=== PATIENT | male | born 1965 | race Caucasian/White ===

== ENCOUNTER 2016-12-31 04:08 | Day surgery (SDC) | payer MEDICARE, SELFPAY ==
[2016-12-24 18:12] LABS: HEMOGLOBIN 15.8 g/dL (13.6-17.8)
--- NOTE | ~2016-12-31 | OP ---
Record Of Operation [facility] [address] [place]. [address] NAME: JEANETTE VEGA : 67 [place]US : [place] [facility] [place] [id number] AGE: 51 ADM/REG DATE : 12/31/16 MR#: [id number] REPORT SERV DATE: 12/31/16 DICTATED BY: MAE GARCIA DATE: 12/31/16 REPORT STATUS : Draft TRANSCRIBED BY: MODL DATE: 12/31/16 DATE OF PROCEDURE: 12/31/2016 PREOPERATIVE DIAGNOSIS: Right rotator cuff tear, biceps tendinitis, and impingement. POSTOPERATIVE DIAGNOSIS: Cuff hyperemia, but no full thickness tear, severe maceration, and tearing of the superior labrum with biceps tenosynovitis, and type 2 acromion, negative bursal cuff tear. PROCEDURE: Right extensive debridement biceps tenodesis, subacromial decompression. SURGEON: Mae Garcia M.D. COMPLICATIONS: None. ANESTHESIA: General endotracheal with regional block. INDICATIONS: This is a 51-year-old male, who had failed nonoperative management of the above mentioned condition, it was a difficult intubation and was done at the [facility] for that reason, he also has a spinal stimulator which precluded an MRI. He had a small full- thickness tear by CT scan and consistent physical findings with biceps tendinitis. He presented for surgical treatment after discussion of the risks, benefits, and alternatives of the procedure. DESCRIPTION OF PROCEDURE: The patient was induced in the supine position. He was carefully taken to the beach-chair position with care maintain the cervical lordosis. A time-out protocol was enforced. Ancef was administered. Posterolateral portals were created for diagnostic arthroscopy, which revealed severe maceration and tearing of the superior labrum with a type 2 and partially type 3 with some striational tearing of part of the labrum. There was severe hour-glassing and severe lipstick type extra-articular biceps tenosynovitis with some early capsulitis of the rotator interval. The cuff was hyperemic and somewhat patulous, but really did not have the tear on the articular side or bursal side. There was copious bursitis and some early thickening of coracoid humeral ligament. There was a type 3 acromion. Extensive debridement: A 5.5 cannula was localized with an outside-in spinal technique. Because of the metaplasia and the hyperemia, and contractile nature of the rotator interval, we used the ablator to release the rotator interval and the upper portion of the middle glenohumeral ligament. We ablated multiple areas of granulation tissue both anteriorly and superiorly. The biceps was transected and allowed to retract. We debrided the superior labrum as well. We assessed this for repair, however, given his age and the amount of capsulitis, I felt that he would be at risk for getting stiff for having persistent or recurrent pain with the repair, so, we decided to treat this labrum with debridement. We debrided the undersurface of the cuff and cleared out multiple areas of synovitis in the articular margin. Record Of Operation [facility] [address] [facility] [place]. [address] NAME: JEANETTE VEGA : 67 [place]US : [place] [facility] [place] PAT#: [id number] AGE: 51 ADM/REG DATE : 12/31/16 MR#: [id number] REPORT SERV DATE: 12/31/16 DICTATED BY: MAE GARCIA DATE: 12/31/16 REPORT STATUS : Draft TRANSCRIBED BY: FARZANA DATE: 12/31/16 Subacromial decompression: The arthroscopic cannula was then removed from the posterior shoulder and redirected in the subacromial space. The metal trocar was inserted and the cannula was advanced out the anterior superior portal creating an outflow portal with outside in technique. A lateral portal was then created after spinal needle localization and a skin incision was made with an 11-blade. A large 5-5 shaver was then introduced into the joint from lateral and its tip was well visualized in the bursa. A bursectomy was performed going from lateral to medial allowing visualization of the rotator cuff and undersurface of the acromion. Coagulation was achieved with a 90-degree electrothermal device and the undersurface of the CA ligament was recessed with the tissue ablator. Bur was then introduced laterally and acromioplasty was performed smoothing the acromion from a type I morphology. This was begun laterally and advanced medially. The AC joint was then checked for spurs and these were smoothed. The soft tissue decompression was carried out anteriorly, laterally and superiorly. The scope was then withdrawn and placed into the lateral portal and the cutting-block technique was used with the instrumentation from posterior to assure that a perfect acromioplasty had been performed. Decompression then underwent the final check by forward flexing the arm again to check for impingement. Biceps tenodesis: We then forward flexed and externally rotated. There was unusually large amount of bursitis and hyperemia in the bursa and this anterior subdeltoid bursa. We debrided that with a shaver carefully. We achieved hemostasis. We released the biceps sheath and brought the biceps out. It appeared to be somewhat subluxed with severe extra- articular biceps tenosynovitis which is copiously debrided. We placed a double loaded lupine and then used interlocking Bunny-Dillon sutures with a clever hooks to tenodesed the biceps on the supra pectoral location arthroscopically. The remaining biceps were removed and excised. We again, cleared out the bursa and internally and externally rotated the shoulder to assess for any tears of the cuff and these were not evident. The scope was withdrawn. The portals were closed with Monocryl. Steri-Strips were applied. The patient tolerated the procedure well and was sent to PACU in stable condition. POSTOPERATIVE PLAN: Biceps protection for four weeks. Early shoulder rehabilitation. BSS/MODL Mae Garcia M.D. / [id number] CC: Bill Weiner M.D.
[~2016-12-31 04:08] MED LIST: EFFEXOR100 MG PO; GEODON20 PO; LEVOTHYROXIN50 MCG PO; LIOR10 PO; MOVANTIK25 MG PO; NEUR800 PO; NORCO1 TAB PO; PRIN10 PO; SENTAB PO; TESTOST CYP100 MG/ML IJ; TRAZ50 PO; X5; XANAX1 MG PO; ZOCOR40 PO
[2016-12-31 05:45] LABS: BUN (BLOOD UREA NITROGEN) 13 MG/DL (6-23); CHLORIDE, SERUM 107 MMOL/L (96-112); CO2 (CARBON DIOXIDE) 30 MMOL/L (24-34); GFR AFRICAN AMERICAN 115 ML/MIN (>=60); GFR NON AFRICAN AMERICAN 99 ML/MIN (>=60); GLUCOSE, SERUM 84 MG/DL (60-99); POTASSIUM, SERUM 3.7 MMOL/L (3.5-5.3); SODIUM, SERUM 135 MMOL/L (135-148)
== END 2016-12-31 12:47 | disposition home or self-care (01) ==
LOC: SDC 04:08
PROVIDERS: Orthopaedic Surgery Sports Medicine
PROC: 0RNJ4ZZ Release Right Shoulder Joint, Percutaneous Endoscopic Approach (ICD-10-PCS; principal; 2016-12-31 05:45)
PROC: 0RBJ4ZZ Excision of Right Shoulder Joint, Percutaneous Endoscopic Approach (ICD-10-PCS; 2016-12-31 05:45)
PROC: 0LS14ZZ Reposition Right Shoulder Tendon, Percutaneous Endoscopic Approach (ICD-10-PCS; 2016-12-31 05:45)
DX: M75.21 Bicipital tendinitis, right shoulder (principal); M25.811 Other specified joint disorders, right shoulder; S43.431A Superior glenoid labrum lesion of right shoulder, initial encounter; I10 Essential (primary) hypertension; E78.5 Hyperlipidemia, unspecified; E78.00 Pure hypercholesterolemia, unspecified; E03.9 Hypothyroidism, unspecified; G47.33 Obstructive sleep apnea (adult) (pediatric); F32.9 Major depressive disorder, single episode, unspecified; F41.9 Anxiety disorder, unspecified; F17.290 Nicotine dependence, other tobacco product, uncomplicated; M19.90 Unspecified osteoarthritis, unspecified site; Z88.5 Allergy status to narcotic agent; Z79.899 Other long term (current) drug therapy; Z86.010 Personal history of colon polyps; Z98.52 Vasectomy status; Z98.1 Arthrodesis status; Z98.890 Other specified postprocedural states; J98.6 Disorders of diaphragm; E86.0 Dehydration
CPT/HCPCS: 36415; 71020; 80048; 83735; 84484; 85014; 85018; 85025; 85610; 85730; 93005; 99285; A9270-GY; C1713; J0690; J2250; J2405; J2710; J2795; J3010